=== PATIENT | female | born 2000 | race Hispanic/Latino ===

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

== ENCOUNTER 2018-02-10 17:03 | Emergency (ER) | payer OTHER, SELFPAY ==
[2018-02-10] MEDS ORDERED: Acetaminophen 500 MG TAB ONE (17:17)
[2018-02-10] MEDS ORDERED: Bicillin LA 1.2 MILLION UNITS/2 ML SYRINGE ONE (18:29)
[2018-02-10] MEDS ORDERED: Ondansetron ODT 4 MG TAB ONE (18:30)
[2018-02-10] MEDS ORDERED: Ibuprofen 800 MG TAB ONE (18:30)
[2018-02-10] MEDS ORDERED: Dexamethasone 4 mg/ml Vial ONE (18:30)
== END 2018-02-10 19:20 | disposition home or self-care (01) ==
LOC: ERS 17:03
DX: J02.0 Streptococcal pharyngitis (principal); Z71.6 Tobacco abuse counseling; F17.210 Nicotine dependence, cigarettes, uncomplicated
CPT/HCPCS: 87430; 99406; J0561; J1100; Q0162

== ENCOUNTER 2019-09-07 15:15 | Emergency (ER) | payer OTHER, SELFPAY | END 2019-09-07 15:51 | disposition home or self-care (01) | LOC: ERS 15:15 | DX: J02.9 Acute pharyngitis, unspecified (principal); F17.210 Nicotine dependence, cigarettes, uncomplicated | CPT/HCPCS: 99283 ==